=== PATIENT | male | born 1970 | race Caucasian/White ===

== ENCOUNTER 2016-12-13 19:05 | Emergency (ER) | payer SELFPAY ==
[~2016-12-13] VITALS: Ht 160 cm; Wt 59.0 kg
[2016-12-13 19:05] VITALS: RESP 18; O2SAT 100
[~2016-12-13 19:05] MED LIST: PRIL20TA2
[2016-12-13] MEDS ORDERED: SODIUM CHLOR 0.9% 1000 ML INJ 1,000 ML IV SCH (19:26)
[2016-12-13 19:30] VITALS: BP 113/65; PULSE 77; RESP 18; TEMP 98; O2SAT 100
[2016-12-13] MEDS ORDERED: SODIUM CHLOR 0.9% 1000 ML INJ 1,000 ML IV ONE (19:30)
[2016-12-13] MEDS ORDERED: SODIUM CHLORIDE 0.9% FLUSH 10 ML FLUSH IV FLUSH PRN ×2 (19:30)
[2016-12-13] MEDS ORDERED: ONDANSETRON HCL 4 MG/2 ML VIAL IVP ONE (19:30)
[2016-12-13 20:00] LABS: BASOPHIL % 8.9 % (0.0-2.0); EOSINOPHIL # 0.1 TH/MM3 (0-0.4); EOSINOPHIL % 0.5 % (0.0-4.0); LYMPH % 19.3 % (9.0-44.0); LYMPHOCYTE # 2.2 TH/MM3 (1.0-4.8); MEAN CELL VOLUME 90.5 FL (80.0-100.0); MEAN CORPUSCULAR HEMOGLOBIN 30.7 PG (27.0-34.0); MEAN CORPUSCULAR HGB CONC 33.9 % (32.0-36.0); MONO % 10.9 % (0.0-8.0); NEUT % 60.4 % (16.0-70.0); PLATELET COUNT 362 TH/MM3 (150-450); RED BLOOD COUNT 4.97 MIL/MM3 (4.50-5.90); RED CELL DISTRIBUTION WIDTH 12.5 % (11.6-17.2); WHITE BLOOD COUNT 11.6 TH/MM3 (4.0-11.0)
[2016-12-13 20:04] LABS: CHLORIDE 98 MEQ/L (98-107); POTASSIUM 3.4 MEQ/L (3.5-5.1); SODIUM (NA) 137 MEQ/L (136-145)
[2016-12-13 20:08] LABS: ANION GAP 11 MEQ/L (5-15); BICARBONATE 28.5 MEQ/L (21.0-32.0); BLOOD UREA NITROGEN 22 MG/DL (7-18)
[2016-12-13 20:11] LABS: ALT (GPT) 42 U/L (12-78); AST (GOT) 36 U/L (15-37); GLOMERULAR FILTRATION RATE 29 ML/MIN (>89)
[2016-12-13 20:12] LABS: TOTAL BILIRUBIN ADULT 0.4 MG/DL (0.2-1.0)
[2016-12-13 20:14] LABS: ALKALINE PHOSPHATASE 86 U/L (45-117); HEMO FLAGS AUTO DIFF
--- NOTE | 2016-12-13 20:14 | PD ---
HPI Chief Complaint: General Weakness Time Seen by Provider: 19:17 Travel History International Travel<30 days: No Contact w/Intl Traveler<30days: No History of Present Illness HPI The patient arrives by police escort as he is under arrest. He reports feeling lightheaded when he stands from a crouched position and has felt this way throughout the course of the day. He reports decreased urine output however when he did urinate it was quite dark. He describes a generalized sense of fatigue. Due to nausea is oral hydration has been limited. PFSH Past Medical History Diminished Hearing: No Ulcer: Yes Past Surgical History Abdominal Surgery: Yes Social History Alcohol Use: No Tobacco Use: Yes Allergies-Medications (Allergen,Severity, Reaction): Coded Allergies: No Known Allergies (Verified Allergy, Mild, 02/25/06) Reported Meds & Prescriptions Reported Meds & Active Scripts Active Reported Prilosec Otc (Omeprazole Magnesium) 20 Mg Tab Review of Systems Except as stated in HPI: all other systems reviewed are Neg Physical Exam Narrative GENERAL: 46-year-old male well-nourished well-developed resting comfortably on bed GENITOURINARY: No testicular mass. No hernia. No penile discharge or erythema about the glans. SKIN: Focused skin assessment warm/dry. HEAD: Atraumatic. Normocephalic. EYES: Pupils equal and round. No scleral icterus. No injection or drainage. ENT: No nasal bleeding or discharge. Mucous membranes pink and moist. NECK: Trachea midline. No JVD. CARDIOVASCULAR: Regular rate and rhythm. No murmur appreciated. RESPIRATORY: No accessory muscle use. Clear to auscultation. Breath sounds equal bilaterally. GASTROINTESTINAL: Abdomen soft, non-tender, nondistended. Hepatic and splenic margins not palpable. MUSCULOSKELETAL: No obvious deformities. No clubbing. No cyanosis. No edema. NEUROLOGICAL: Awake and alert. No obvious cranial nerve deficits. Motor grossly within normal limits. Normal speech. PSYCHIATRIC: Appropriate mood and affect; insight and judgment normal. Data Data Orders Iv Access Insert/Monitor (12/13/16 19:26) Ecg Monitoring (12/13/16 19:26) Oximetry (12/13/16 19:26) Ondansetron Inj (Zofran Inj) (12/13/16 19:30) Sodium Chlor 0.9% 1000 Ml Inj (Ns 1000 M (12/13/16 19:26) Sodium Chloride 0.9% Flush (Ns Flush) (12/13/16 19:30) Complete Blood Count With Diff (12/13/16 19:26) Comprehensive Metabolic Panel (12/13/16 19:26) Urinalysis - C+S If Indicated (12/13/16 19:26) Sodium Chloride 0.9% Flush (Ns Flush) (12/13/16 19:30) Sodium Chlor 0.9% 1000 Ml Inj (Ns 1000 M (12/13/16 19:30) Creatine Kinase (Cpk) (12/13/16 19:26) Labs Laboratory Tests Test 12/13/16 19:40 Sodium Level 137 MEQ/L Potassium Level 3.4 MEQ/L Chloride Level 98 MEQ/L Carbon Dioxide Level 28.5 MEQ/L Anion Gap 11 MEQ/L Blood Urea Nitrogen 22 MG/DL Creatinine 2.40 MG/DL Estimat Glomerular Filtration 29 ML/MIN Rate Random Glucose 77 MG/DL Calcium Level 9.6 MG/DL Aspartate Amino Transf 36 U/L (AST/SGOT) Alanine Aminotransferase 42 U/L (ALT/SGPT) Albumin 3.7 GM/DL MDM Medical Decision Making Medical Screen Exam Complete: Yes Emergency Medical Condition: Yes Medical Record Reviewed: Yes Differential Diagnosis Renal failure, rhabdomyolysis, electrolyte imbalance, anemia, liver disease Narrative Course IV fluids started. The patient drank about a quart of Gatorade. If his blood work is unremarkable discharge will be ok. Oncoming provider to follow-up bloodwork and disposition. Elmer Still MD Dec 13, 2016 20:14
[2016-12-13 20:15] VITALS: BP 99/65; PULSE 74; RESP 16; O2SAT 99
--- NOTE | 2016-12-13 20:30 | PD ---
Physical Exam Narrative Patient was seen by ED physician and signed out to me. Data Data Last Documented VS Vital Signs Date Time Temp Pulse Resp B/P Pulse Ox O2 Delivery O2 Flow Rate FiO2 12/13/16 19:30 77 18 100 Room Air 12/13/16 19:30 98.0 113/65 Orders Iv Access Insert/Monitor (12/13/16 19:26) Ecg Monitoring (12/13/16 19:26) Oximetry (12/13/16 19:26) Ondansetron Inj (Zofran Inj) (12/13/16 19:30) Sodium Chlor 0.9% 1000 Ml Inj (Ns 1000 M (12/13/16 19:26) Sodium Chloride 0.9% Flush (Ns Flush) (12/13/16 19:30) Complete Blood Count With Diff (12/13/16 19:26) Comprehensive Metabolic Panel (12/13/16 19:26) Urinalysis - C+S If Indicated (12/13/16 19:26) Sodium Chloride 0.9% Flush (Ns Flush) (12/13/16 19:30) Sodium Chlor 0.9% 1000 Ml Inj (Ns 1000 M (12/13/16 19:30) Creatine Kinase (Cpk) (12/13/16 19:26) Labs Laboratory Tests Test 12/13/16 19:40 White Blood Count 11.6 TH/MM3 Red Blood Count 4.97 MIL/MM3 Hemoglobin 15.3 GM/DL Hematocrit 45.0 % Mean Corpuscular Volume 90.5 FL Mean Corpuscular Hemoglobin 30.7 PG Mean Corpuscular Hemoglobin 33.9 % Concent Red Cell Distribution Width 12.5 % Platelet Count 362 TH/MM3 Mean Platelet Volume 7.5 FL Neutrophils (%) (Auto) 60.4 % Lymphocytes (%) (Auto) 19.3 % Monocytes (%) (Auto) 10.9 % Eosinophils (%) (Auto) 0.5 % Basophils (%) (Auto) 8.9 % Neutrophils # (Auto) 7.0 TH/MM3 Lymphocytes # (Auto) 2.2 TH/MM3 Monocytes # (Auto) 1.3 TH/MM3 Eosinophils # (Auto) 0.1 TH/MM3 Basophils # (Auto) 1.0 TH/MM3 CBC Comment AUTO DIFF Differential Total Cells 100 Counted Neutrophils % (Manual) 53 % Lymphocytes % 39 % Monocytes % 6 % Basophils % 2 % Neutrophils # (Manual) 6.1 TH/MM3 Differential Comment FINAL DIFF MANUAL Platelet Estimate HIGH Platelet Morphology Comment NORMAL Red Cell Morphology Comment NORMAL Sodium Level 137 MEQ/L Potassium Level 3.4 MEQ/L Chloride Level 98 MEQ/L Carbon Dioxide Level 28.5 MEQ/L Anion Gap 11 MEQ/L Blood Urea Nitrogen 22 MG/DL Creatinine 2.40 MG/DL Estimat Glomerular Filtration 29 ML/MIN Rate Random Glucose 77 MG/DL Calcium Level 9.6 MG/DL Total Bilirubin 0.4 MG/DL Aspartate Amino Transf 36 U/L (AST/SGOT) Alanine Aminotransferase 42 U/L (ALT/SGPT) Alkaline Phosphatase 86 U/L Total Creatine Kinase 96 U/L Total Protein 7.9 GM/DL Albumin 3.7 GM/DL MDM Supervised Visit with DWAYNE: No Interpretation(s) 21:20 PM. CBC with WBC 11.6. Normal differential. Potassium 3.4. BUN 22. Creatinine 2.40. Diagnosis Primary Impression: Heat exhaustion Qualified Code: T67.5XXA - Heat exhaustion, initial encounter Additional Impression: Renal insufficiency Patient Instructions: General Instructions Additional Instruction: Encourage by mouth fluid. Rest in cool place. Follow-up with personal physician. Return if worse. Med/Other Pt SpecificInfo: No Meds Exist/No RX given Scripts No Active Prescriptions or Reported Meds Disposition: 01 DISCHARGE HOME Condition: Stable Charles Campoverde MD Dec 13, 2016 20:30
[2016-12-13 20:42] LABS: CREATINE KINASE 96 U/L (39-308)
[2016-12-13 21:00] LABS: BASOPHILS 2 % (0-2); NEUTROPHIL # MANUAL DIFF 6.1 TH/MM3 (1.8-7.7); POLYS (SEG NEUTROPHILS) 53 % (16-70); WBC DIFF SAMPLE 100
[2016-12-13 21:01] LABS: PLATELET ESTIMATE SMEAR HIGH (NORMAL); PLATELET MORPHOLOGY NORMAL (NORMAL); SCAN/DIFF FINAL DIFF MANUAL
[2016-12-13 21:15] VITALS: BP 113/68; PULSE 76; RESP 16; O2SAT 99
[2016-12-13 21:41] LABS: BLOOD, URINE NEG (NEG); GLUCOSE,URINE NEG (NEG); KETONE, URINE NEG (NEG); NITRITE,URINE NEG (NEG); PH, URINE 5.5 (5.0-8.5)
[2016-12-13 21:46] LABS: URINE COLOR YELLOW (YELLW/STRAW)
[2016-12-13 21:47] LABS: MUCUS URINE MOD /lpf (OCC); WHITE BLOOD CELL CAST, URINE 0-2 /lpf
[2016-12-13 21:48] LABS: COMMENT (UR) CULT NOT INDICATED; CULTURE IF INDICATED CULT NOT INDICATED; RBC, URINE 0-3 /hpf (0-3); SQUAMOUS EPITHELIAL CELL URINE 0-5 /hpf (0-5)
== END 2016-12-13 22:05 | disposition home or self-care (01) ==
LOC: PHED 19:05
DX: T67.5XXA Heat exhaustion, unspecified, initial encounter (principal); N28.9 Disorder of kidney and ureter, unspecified
CPT/HCPCS: 80053; 81001; 82550; 85007; 85027; 96361; 96374; 99284; J2405; J7030